=== PATIENT | male | born 1985 | race African-American/Black ===

== ENCOUNTER 2017-11-04 22:36 | Emergency (ER) | payer MEDICAID ==
[~2017-11-04] VITALS: Ht 182.9 cm; Wt 68.0 kg
[2017-11-04 23:09] VITALS: BP 150/98
[2017-11-04] MEDS ORDERED: IBUPROFEN600 MG ORAL (23:31)
--- NOTE | 2017-11-04 23:32 | Emergency Room Report ---
History of Present Illness General Chief Complaint: Pain Source: Patient Present Illness HPI Is a 32-year-old male with no past medical history. He presents with chief complaint of right sided back pain/chest pain for about 3 days now. He woke up with a pain. He said is worse with a deep breath. Worse with movement. No trauma. No fever chills but no other complaint. No chest pain. No diaphoresis. Allergies: Coded Allergies: No Known Allergies (Unverified , 11/04/17) Patient History Past Medical History: see triage record, old chart reviewed Past Surgical History: none Pertinent Family History: none Social History: Denies: smoking Immunizations: other Reviewed Nursing Documentation: PMH: Agreed; PSxH: Agreed Nursing Documentation-PMH Past Medical History: No Stated History Review of Systems Eye: Denies: eye pain, blurred vision ENT: Denies: ear pain, nose congestion, throat swelling Respiratory: Denies: cough, shortness of breath Cardiovascular: Reports: chest pain; Denies: palpitations Gastrointestinal: Denies: abdominal pain, diarrhea, nausea, vomiting Musculoskeletal: Denies: back pain, joint pain Skin: Denies: rash Neurological: Denies: headache, numbness Endocrine: Denies: increased thirst, increased urine Hematologic/Lymphatic: Denies: easy bruising All Other Systems: negative except mentioned in HPI Physical Exam Vital Signs Date Time Temp Pulse Resp B/P (MAP) Pulse Ox O2 Delivery O2 Flow Rate FiO2 11/04/17 22:41 98.4 60 16 150/98 97 Room Air 98.4 vitals with htn Sp02 EP Interpretation: reviewed, normal General Appearance: well appearing, no apparent distress, alert Head: normocephalic, atraumatic Eyes: bilateral eye PERRL, bilateral eye EOMI ENT: hearing grossly normal, normal pharynx Neck: full range of motion, supple, no meningismus Respiratory: chest non-tender, lungs clear, normal breath sounds Cardiovascular #1: regular rate, rhythm, no murmur Gastrointestinal: normal bowel sounds, non tender, no mass, no organomegaly, no bruit, non-distended Musculoskeletal: back normal, gait/station normal, normal range of motion Psychiatric: mood/affect normal Skin: warm/dry Medical Decision Making Diagnostic Impression: Primary Impression: Acute costochondritis ER Course Patient with pain consistent with a costochondritis or rib pain. No trauma. No evidence of ACS, PE, dissection to name a few. He is resting comfortably. She is not tachypneic or tachycardic. No hypoxia. Chest X-Ray Diagnostic Results Chest X-Ray Diagnostic Results : Chest X-Ray Ordered: Yes # of Views/Limited/Complete: 1 View Indication: Chest Pain EP Interpretation: Yes Interpretation: no consolidation, no effusion, no pneumothorax, no acute cardiopulmonary disease Impression: No acute disease Electronically Signed by: Janes Green MD Last Vital Signs Date Time Temp Pulse Resp B/P (MAP) Pulse Ox O2 Delivery O2 Flow Rate FiO2 11/04/17 23:09 98.4 60 16 150/98 97 Room Air 98.4 Status: improved Disposition: HOME, SELF-CARE Condition: Stable Scripts Ibuprofen* (MOTRIN*) 600 Mg Tablet 600 MG ORAL THREE TIMES A DAY, #30 TAB 0 Refills Prov: JANES GREEN M.D. 11/04/17 Additional Instructions: Follow-up your doctor in 3-7 days. Return if worse. JANES GREEN M.D. Nov 04, 2017 23:32
[2017-11-04 23:58] VITALS: BP 150/98
--- NOTE | 2017-11-05 11:03 | Diagnostic Imaging Report ---
Indication: Chest pain upon deep inspiration Technique: One view of the chest Comparison: none Findings: Lungs and pleural spaces are clear. Heart size is normal Impression: No acute process
== END 2017-11-04 23:58 | disposition home or self-care (01) ==
LOC: EMR 23:00
DX: M94.0 Chondrocostal junction syndrome [Tietze] (principal)
CPT/HCPCS: 71045; 99283

== ENCOUNTER 2017-12-24 23:14 | Emergency (ER) | payer MEDICAID ==
[~2017-12-24] VITALS: Ht 180.3 cm; Wt 65.8 kg
[~2017-12-24 23:14] MED LIST: IBUPROFEN600 MG ORAL
[2017-12-24] MEDS ORDERED: NKM (23:23)
[2017-12-25] MEDS ORDERED: IBUPROFEN600 MG ORAL (00:34)
[2017-12-25] MEDS ORDERED: NORCO 5-325 TA1 EACH ORAL (00:34)
[2017-12-25 00:45] VITALS: BP 156/97
--- NOTE | 2017-12-25 02:06 | Emergency Room Report ---
History of Present Illness General Chief Complaint: Lower Extremity Injury Source: Patient Present Illness HPI 32-year-old male presents ED complaining of left leg pain. States that he was going down a ladder and felt a twist in his knee. States he was wearing tall boots that protected his ankles. Patient denies falling. Presents with pain in his left leg. 8 out of 10, throbbing, nonradiating. Notes pain but is able to bear weight. Denies any other injuries. No other aggravating relieving factors. Denies any other associated symptoms Allergies: Coded Allergies: No Known Allergies (Unverified , 11/04/17) Patient History Past Medical History: none Past Surgical History: none Pertinent Family History: none Social History: Denies: smoking, alcohol use, drug use Immunizations: UTD Reviewed Nursing Documentation: PMH: Agreed; PSxH: Agreed Nursing Documentation-PMH Past Medical History: No Stated History Review of Systems All Other Systems: negative except mentioned in HPI Physical Exam Vital Signs Date Time Temp Pulse Resp B/P (MAP) Pulse Ox O2 Delivery O2 Flow Rate FiO2 12/24/17 23:20 98.3 67 18 156/97 98 Room Air 98.2 Sp02 EP Interpretation: reviewed, normal General Appearance: no apparent distress, alert, GCS 15, non-toxic Head: normocephalic Eyes: bilateral eye normal inspection, bilateral eye PERRL ENT: normal ENT inspection Neck: normal inspection Respiratory: normal inspection Cardiovascular #1: normal inspection Gastrointestinal: normal inspection Rectal: deferred Genitourinary: no CVA tenderness Musculoskeletal: normal range of motion, tender - TTP just distal to L knee. no swelling/deformity/bruising Neurologic: alert, oriented x3, responsive, motor strength/tone normal, speech normal Psychiatric: normal inspection Skin: normal inspection Lymphatic: normal inspection Procedures Splinting Splinting : Consent: Verbal Pre-Made Type: knee immobilizer Pre-Proc Neuro Vasc Exam: normal Post-Proc Neuro Vasc Exam: normal Patient Tolerated: Well Complications: None Medical Decision Making Diagnostic Impression: Primary Impression: Fibula fracture Qualified Codes: S82.832A - Other fracture of upper and lower end of left fibula, initial encounter for closed fracture ER Course Hospital Course 32-year-old M presents to ED complaining of LLE pain s/p going down ladder Differential diagnoses include: Fracture, dislocation, sprain, contusion Clinical course Patient placed on stretcher. After initial history and physical, I ordered pain medications and Xrays of L tibfib Xrays prelim read shows proximal fibula fx. ankle unremarkable Placed in knee immobilizer. Given crutches. Discussed findings with patient. Patient is safe for discharge with close outpatient follow-up. I'll provide orthopedic outpatient referral Diagnosis - fibula fx Stable and discharged to home with prescription for Motrin, Marcellus. apply ice, keep elevated. weight bear as tolerated. Followup with ortho. Return to ED if symptoms recur or worsen Last Vital Signs Date Time Temp Pulse Resp B/P (MAP) Pulse Ox O2 Delivery O2 Flow Rate FiO2 12/25/17 00:45 98.3 18 156/97 98 Room Air 98.2 12/24/17 23:20 67 Status: improved Disposition: HOME, SELF-CARE Condition: Stable Scripts Hydrocodone Bit/Acetaminophen 5-325* (NORCO 5-325*) 1 Each Tablet 1 TAB ORAL Q6H PRN for For Pain, #10 TAB 0 Refills Prov: Jovi Leonard MD 12/25/17 Ibuprofen* (MOTRIN*) 600 Mg Tablet 600 MG ORAL Q8H PRN for For Pain, #30 TAB 0 Refills Prov: Jovi Leonard MD 12/25/17 Departure Forms: Return to Work Return to Work Date: Dec 29, 2017 Work Restrictions: Desk Work Only Patient Instructions: Fibular Fracture With [facility] Jovi Leonard MD Dec 25, 2017 02:06
--- NOTE | 2017-12-25 14:40 | Diagnostic Imaging Report ---
Indication: Reason For Exam: PAIN Technique: 2 views of the left tibia and fibula Comparison: none Findings: There is an oblique fracture of the proximal fibula. No associated tibial fracture demonstrated Impression: Positive for proximal fibular fracture This agrees with the findings reported by the emergency room physician in the electronic medical record
== END 2017-12-25 00:45 | disposition home or self-care (01) ==
LOC: EMR 23:34
DX: S82.832A Other fracture of upper and lower end of left fibula, initial encounter for closed fracture (principal); X50.1XXA Overexertion from prolonged static or awkward postures, initial encounter; Y93.89 Activity, other specified; Y92.89 Other specified places as the place of occurrence of the external cause
CPT/HCPCS: 99284

== ENCOUNTER 2018-03-26 11:42 | Emergency (ER) | payer MEDICAID ==
[~2018-03-26] VITALS: Ht 180.3 cm; Wt 57.6 kg
[~2018-03-26 11:42] MED LIST changes: +NKM; +NORCO 5-325 TA1 EACH ORAL
--- NOTE | 2018-03-26 12:28 | Emergency Room Report ---
History of Present Illness General Chief Complaint: Abdominal Pain Source: Patient Present Illness HPI 32-year-old male presents to the emergency department complaining of 7 out of 10 in severity intermittent burning sensation in the epigastric area for almost a month now. Patient reports pain is exacerbated after eating and she is noticing that he has been cutting back on his eating due to symptom exacerbation. Patient reports some nausea denies vomiting denies fevers, chills , recent travel or ill contacts. Patient denies diarrhea he reports some mild hardening of the stool. Patient denies night sweats or personal history of cancer. He endorses ovarian cancer in his mother, and no other familial cancers. He denies blood in the stool or black tarry stools. Allergies: Coded Allergies: No Known Allergies (Unverified , 11/04/17) Patient History Past Medical History: see triage record Past Surgical History: none Pertinent Family History: none Reviewed Nursing Documentation: PMH: Agreed; PSxH: Agreed Nursing Documentation-PMH Past Medical History: No Stated History Review of Systems All Other Systems: negative except mentioned in HPI Physical Exam Vital Signs Date Time Temp Pulse Resp B/P (MAP) Pulse Ox O2 Delivery O2 Flow Rate FiO2 03/26/18 11:49 98.1 84 18 143/91 97 Room Air Sp02 EP Interpretation: reviewed, normal General Appearance: well appearing, no apparent distress, alert, GCS 15, non- toxic Head: normocephalic, atraumatic Eyes: bilateral eye normal inspection, bilateral eye PERRL ENT: hearing grossly normal, normal voice Neck: full range of motion Respiratory: lungs clear, normal breath sounds, speaking full sentences Cardiovascular #1: regular rate, rhythm Gastrointestinal: normal bowel sounds, non tender, soft, non-distended, no guarding, no hernia Rectal: deferred Musculoskeletal: back normal, gait/station normal, normal range of motion, non- tender Neurologic: alert, oriented x3, responsive, motor strength/tone normal, sensory intact, normal gait, speech normal, grossly normal Psychiatric: judgement/insight normal Skin: normal color, no rash, warm/dry, well hydrated Medical Decision Making PA Attestation Dr. Billy is my supervising Physician whom patient management has been discussed with. Diagnostic Impression: Primary Impression: Gastritis Qualified Codes: K29.70 - Gastritis, unspecified, without bleeding Additional Impression: Abdominal pain Qualified Codes: R10.13 - Epigastric pain ER Course 32-year-old male presents to the emergency department complaining of 7 out of 10 in severity intermittent burning sensation in the epigastric area for almost a month now. Patient reports pain is exacerbated after eating and she is noticing that he has been cutting back on his eating due to symptom exacerbation. Patient reports some nausea denies vomiting denies fevers, chills , recent travel or ill contacts. Patient denies diarrhea he reports some mild hardening of the stool. Patient denies night sweats or personal history of cancer. He endorses ovarian cancer in his mother, and no other familial cancers. He denies blood in the stool or black tarry stools. Ddx considered but are not limited to GE, colitis, acute appy, SBO, H.pylori, Gastritis, PNA, Cancer, pericarditis just to name a few. Vital signs: pt. is afebrile, H&PE are most consistent with Gastritis - no evidence to suggest acute abdomen on physical exam.- Patient is not currently having symptoms. ORDERS: -None required at this time, the dx is clinical. ED INTERVENTIONS: -Pepcid PO -I do not identify an emergent condition at this time. With current presentation , pt. is stable for close outpatient follow up and conservative treatment. D/ w pt. to return promptly to ED with worsening or new symptoms.- Pt. (and or responsible democrat) verbalizes' understanding and agreement with proposed treatment plan.proposed treatment plan. DISCHARGE: At this time pt. is stable for d/c to home. Will provide printed patient care instructions, and any necessary prescriptions. Care plan and follow up instructions have been discussed with the patient prior to discharge. Last Vital Signs Date Time Temp Pulse Resp B/P (MAP) Pulse Ox O2 Delivery O2 Flow Rate FiO2 03/26/18 12:13 84 18 Room Air 03/26/18 11:49 98.1 143/91 97 Disposition: HOME, SELF-CARE Condition: Stable Scripts Ranitidine Hcl* (ZANTAC*) 150 Mg Tablet 150 MG ORAL TWICE A DAY, #20 TAB Prov: Una James 03/26/18 Patient Instructions: Food Choices for Gastroesophageal Reflux Disease, Adult, Gastritis, Adult Additional Instructions: Take medications as directed. Follow up with a Primary Care Provider in 3-5 days for * GI SPECIALIST REFERRAL *, even if your symptoms have resolved. --Please review list of primary care clinics, if you do not already have a primary care provider Return sooner to ED if new symptoms occur, or current symptoms become worse. - Please note that this Emergency Department Report was dictated using [employer] technology software, occasionally this can lead to erroneous entry secondary to interpretation by the dictation equipment. Una James Mar 26, 2018 12:28
[2018-03-26] MEDS ORDERED: ZANTAC150 MG ORAL (12:29)
[2018-03-26 12:30] VITALS: BP 137/68
[2018-03-26 12:40] VITALS: BP 137/68
== END 2018-03-26 12:40 | disposition home or self-care (01) ==
LOC: EMR 12:27
DX: K29.70 Gastritis, unspecified, without bleeding (principal)
CPT/HCPCS: 99282